=== PATIENT | female | born 1945 | race Two or more races ===

== ENCOUNTER 2020-04-12 23:11 | Emergency (ER) | payer OTHER ==
[~2020-04-12] VITALS: Ht 162.6 cm; Wt 74.8 kg
[2020-04-12] MEDS ORDERED: COZAAR25 MG (23:24)
[2020-04-12] MEDS ORDERED: LIPITOR20 MG (23:24)
[2020-04-13] MEDS ORDERED: DUI500 PO (02:16)
== END 2020-04-13 02:32 | disposition home or self-care (01) ==
LOC: ER 23:11
DX: L98.8 Other specified disorders of the skin and subcutaneous tissue (principal); R60.0 Localized edema

== ENCOUNTER 2020-10-01 01:34 | Emergency (ER) | payer OTHER ==
[~2020-10-01] VITALS: Ht 162.6 cm; Wt 72.6 kg
[~2020-10-01 01:34] MED LIST: COZAAR25 MG; DUI500 PO; LIPITOR20 MG
[2020-10-01] MEDS ORDERED: TRAZODONE HCL150 MG (01:50)
[2020-10-01] MEDS ORDERED: VISTARIL50 MG PO (03:59)
== END 2020-10-01 04:04 | disposition home or self-care (01) ==
LOC: ER 01:34
DX: R42 Dizziness and giddiness (principal); R45.0 Nervousness; F41.1 Generalized anxiety disorder; T43.215A Adverse effect of selective serotonin and norepinephrine reuptake inhibitors, initial encounter; Y92.89 Other specified places as the place of occurrence of the external cause